=== PATIENT | female | born 1975 | race Caucasian/White ===

== ENCOUNTER 2020-10-25 14:45 | Emergency (ER) | payer BC, OTHER ==
--- NOTE | 2020-10-25 16:39 | ED Physician Documentation ---
PD HPI LOWER EXT INJURY - Stated complaint Stated Complaint: INGROWN HAIR ON LEG - Chief complaint Chief Complaint: Wound - History obtained from History obtained from: Patient - History of Present Illness PD HPI LOW EXT INJURY LOCATION: Left - Additional information Additional information: 44-year-old woman had a groin cyst about a month ago and finished Keflex for same on October 09. Last night developed an exquisitely painful lesion on the left lateral calf. There was no specific trauma. No fevers or chills or other systemic symptoms. Review of Systems Constitutional: reports: Reviewed and negative Eyes: reports: Reviewed and negative Ears: reports: Reviewed and negative Nose: reports: Reviewed and negative Throat: reports: Reviewed and negative PD PAST MEDICAL HISTORY - Past Medical History Past Medical History: No - Past Surgical History Past Surgical History: No - Present Medications Home Medications: Ambulatory Orders Medication Instructions Recorded Confirmed cephALEXin [Keflex] 500 mg PO Q6H #28 cap 10/25/20 - Allergies Allergies/Adverse Reactions: Allergies Allergy/AdvReac Type Severity Reaction Status Date / Time No Known Drug Allergies Allergy Verified 10/25/20 15:04 - Social History Does the pt smoke?: No Smoking Status: Never smoker Does the pt drink ETOH?: Yes Does the pt have substance abuse?: No - Immunizations Immunizations are current?: Yes PD ED PE NORMAL - Vitals Vital signs reviewed: Yes - General General: Alert and oriented X 3, No acute distress - HEENT HEENT: PERRL, EOMI - Neck Neck: Supple, no meningeal sign, No bony TTP - Back Back: No CVA TTP, No spinal TTP - Derm Derm: Normal color, Warm and dry - Extremities Extremities: Other (There is a very small wound or popped vesicle measuring only about a millimeter around on the lateral left calf. There is no purulent drainage. There is several centimeters of exquisitely tender cellulitis surrounding that.) - Neuro Neuro: Alert and oriented X 3, Normal speech Results - Vitals Vitals: Vital Signs - 24 hr 10/25/20 10/25/20 15:02 18:29 Temperature 36.2 C L 36.6 C Heart Rate 68 66 Respiratory 16 16 Rate Blood Pressure 135/85 H 134/74 H O2 Saturation 100 100 Oxygen O2 Source Room air - Labs Labs: Microbiology 10/25/20 16:39 Wound Culture - Preliminary Leg - Left Laboratory Tests 10/25/20 10/25/20 10/25/20 16:44 16:44 16:44 WBC 11.2 H RBC 4.93 Hgb 14.4 Hct 43.5 MCV 88.2 MCH 29.2 MCHC 33.1 RDW 13.9 Plt Count 173 MPV 9.4 Neut # (Auto) 8.8 H Lymph # (Auto) 1.5 [place] # (Auto) 0.6 Eos # (Auto) 0.1 Baso # (Auto) 0.1 Absolute Nucleated RBC 0.00 Nucleated RBC % 0.0 ESR 1 Sodium 138 Potassium 3.9 Chloride 102 Carbon Dioxide 23 Anion Gap 13.0 BUN 9 Creatinine 0.9 Estimated GFR (MDRD) 68 L Glucose 87 Calcium 9.3 C-Reactive Protein < 1.0 PD MEDICAL DECISION MAKING - ED course ED course: 44-year-old woman presents with a small area of cellulitis to the left lateral calf. She appears well but complains of significant pain although declined pain medication. She was therefore slightly worrying to me for a potential necrotizing soft tissue infection and this was worked up with blood work and a CT. Blood work showed a white count that was minimally elevated but normal sed rate and CRP. CT showed cellulitis and potentially myositis or fasciitis. No gas. This was discussed by phone with our orthopedist, Dr. Marko Machuca who did not feel like urgent operative intervention was necessary, that said, he is not technically on-call. She was administered IV antibiotics here, 2 g of cefazolin and what we did is agree to have her return immediately for worrisome issues but otherwise in 18 hours for a scheduled recheck with me. Departure - Departure Disposition: 01 Home, Self Care Clinical Impression: Cellulitis Qualifiers: Site of cellulitis: extremity Site of cellulitis of extremity: lower extremity Laterality: left Qualified Code(s): L03.116 - Cellulitis of left lower limb Condition: Good Record reviewed to determine appropriate education?: Yes Instructions: Cellulitis Dc Prescriptions: cephALEXin [Keflex] 500 mg PO Q6H #28 cap Comments: Prescription sent electronically to [facility] in [place]. Return immediately if you develop fever, intolerable pain, or spreading redness. Otherwise return tomorrow at noon for recheck with me. Discharge Date/Time: 10/25/20 18:52
[2020-10-25 16:50] LABS: BASOPHILS # (AUTO) 0.1 10^3/uL (0.0-0.1); BASOPHILS % (AUTO) 0.5 %; EOSINOPHILS # (AUTO) 0.1 10^3/uL (0.0-0.7); EOSINOPHILS % (AUTO) 0.7 %; HCT - HEMATOCRIT 43.5 % (37.0-47.0); HGB - HEMOGLOBIN 14.4 g/dL (12.0-16.0); LYMPHOCYTES # (AUTO) 1.5 10^3/uL (1.5-3.5); LYMPHOCYTES % (AUTO) 13.8 %; MEAN CORPUSCULAR HEMOGLOBIN 29.2 pg (27.0-31.0); MEAN CORPUSCULAR HGB CONC 33.1 g/dL (32.0-36.0); MEAN CORPUSCULAR VOLUME 88.2 fL (81.0-99.0); MEAN PLATELET VOLUME 9.4 fL (7.9-10.8); MONOCYTES # (AUTO) 0.6 10^3/uL (0.0-1.0); MONOCYTES % (AUTO) 5.4 %; NEUTROPHILS # (AUTO) 8.8 10^3/uL (1.5-6.6); NEUTROPHILS % (AUTO) 79.2 %; PLT - PLATELET COUNT 173 10^3/uL (130-450); RED BLOOD COUNT 4.93 10^6/uL (4.20-5.40); RED CELL DISTRIBUTION WIDTH 13.9 % (12.0-15.0); WHITE BLOOD COUNT 11.2 x10^3/uL (4.8-10.8)
[2020-10-25] MEDS ORDERED: IOPAMIDOL-300 100 ML VIAL ONE (17:01)
[2020-10-25 17:06] LABS: BUN - BLOOD UREA NITROGEN 9 mg/dL (6-20); CALCIUM 9.3 mg/dL (8.5-10.3); CARBON DIOXIDE - CO2 23 mmol/L (21-32); CHLORIDE 102 mmol/L (101-111); CREATININE 0.9 mg/dL (0.4-1.0); GFR - MDRD 68 (>89); GLUCOSE 87 mg/dL (70-100); POTASSIUM 3.9 mmol/L (3.5-5.0); SODIUM 138 mmol/L (135-145)
[2020-10-25 17:12] LABS: CRP - C-REACTIVE PROTEIN < 1.0 mg/dL (0-1.0)
[2020-10-25] MEDS ORDERED: ceFAZolin 1 GM VIAL IVP STA (17:50)
[2020-10-25] MEDS ORDERED: IOPAMIDOL-300 100 ML VIAL IVP ONE (17:54)
--- NOTE | 2020-10-25 18:00 | CT Report ---
PROCEDURE: LOWER EXTREMITY W - LT INDICATIONS: LLE lateral calf pain, eval NSTI TECHNIQUE: CT images of the left lower extremity were obtained after IV contrast menstruation (from j ust below the level of the knee to just above the level of the ankle). COMPARISON: None. There is mild skin thickening along the lateral aspect of the lower leg, with particular edema in the subcutaneous fat. There is also some fluid layering just superficial and immediately subjacent to th e fascia in this region, for example a subfascial fluid collection measuring 3 mm in thickness on ser ies 11 image 577. There is no gas within the visualized soft tissues. No periosteal reaction or other suspicious bone f inding. Vascular structures opacify normally with contrast. IMPRESSION: Small volume of fluid deep and superficial to the fascia of the lateral and anterior compartments of the lower leg. Findings are consistent with myositis or fasciitis. There is no gas in the visualized subcutaneous soft tissues. Skin thickening overlying the lateral aspect of the leg with reticular edema indicative of cellulitis . Reviewed by: Indra Gordon MD on 10/25/2020 5:59 PM PDT Approved by: Indra Gordon MD on 10/25/2020 5:59 PM PDT Station ID: [id number]
[2020-10-25 18:31] VITALS: BP 134/74
== END 2020-10-25 18:52 | disposition home or self-care (01) ==
LOC: ED 14:45
DX: L03.116 Cellulitis of left lower limb (principal)
CPT/HCPCS: 36415; 73701; 80048; 85025; 85651; 86140; 87070; 87181; 87205; 96374; 99283; 99284; Q9967

== ENCOUNTER 2020-10-26 12:09 | Emergency (ER) | payer OTHER ==
[2020-10-26 12:22] VITALS: BP 118/79
--- NOTE | 2020-10-26 13:21 | ED Physician Documentation ---
PD HPI LOWER EXT INJURY - Stated complaint Stated Complaint: LT LEG INJ CHECK - Chief complaint Chief Complaint: Ext Problem - History obtained from History obtained from: Patient - Additional information Additional information: 44-year-old woman returns as requested for recheck of left leg cellulitis with some concern for NSTI. Seen yesterday, a culture was done which is now preliminarily positive for staph aureus, cultures are pending. No fevers in the interim. The redness spread a bit last night but then trunk again. Pain is a little worse today especially with walking. She has been compliant with antibiotics. Review of Systems Ten Systems: 10 systems reviewed and negative Constitutional: denies: Fever, Chills Cardiac: reports: Reviewed and negative Respiratory: reports: Reviewed and negative PD PAST MEDICAL HISTORY - Past Surgical History Past Surgical History: No - Present Medications Home Medications: Ambulatory Orders Medication Instructions Recorded Confirmed cephALEXin [Keflex] 500 mg PO Q6H #28 cap 10/25/20 Sulfamethox/Trimeth 800/160 1 tablet PO BID 7 Days #14 tablet 10/26/20 [Bactrim Ds] - Allergies Allergies/Adverse Reactions: Allergies Allergy/AdvReac Type Severity Reaction Status Date / Time No Known Drug Allergies Allergy Verified 10/26/20 12:17 - Social History Does the pt smoke?: No Smoking Status: Never smoker Does the pt drink ETOH?: Yes Does the pt have substance abuse?: No - Immunizations Immunizations are current?: Yes PD ED PE NORMAL - Vitals Vital signs reviewed: Yes - General General: Alert and oriented X 3, No acute distress - HEENT HEENT: PERRL, EOMI - Neck Neck: Supple, no meningeal sign, No bony TTP - Extremities Extremities: Other (The cellulitis is within the bounds of that martin yesterday on the left lateral calf. It is less firm than yesterday. She does have some pain with flexion and extension of the leg but no profound tenderness.) - Neuro Neuro: Alert and oriented X 3, Normal speech Results - Vitals Vitals: Vital Signs - 24 hr 10/26/20 12:17 Temperature 36.5 C Heart Rate 71 Respiratory 16 Rate Blood Pressure 118/79 O2 Saturation 97 Oxygen O2 Source Room air - Labs Labs: Laboratory Tests 10/26/20 10/26/20 10/26/20 13:20 13:20 13:20 WBC 10.1 RBC 4.87 Hgb 14.4 Hct 43.2 MCV 88.7 MCH 29.6 MCHC 33.3 RDW 13.8 Plt Count 172 MPV 9.5 Neut # (Auto) 7.4 H Lymph # (Auto) 1.8 [place] # (Auto) 0.7 Eos # (Auto) 0.2 Baso # (Auto) 0.1 Absolute Nucleated RBC 0.00 Nucleated RBC % 0.0 ESR 5 Sodium 138 Potassium 3.9 Chloride 103 Carbon Dioxide 25 Anion Gap 10.0 BUN 9 Creatinine 0.8 Estimated GFR (MDRD) 78 L Glucose 94 Calcium 9.0 C-Reactive Protein 1.5 H PD MEDICAL DECISION MAKING - ED course ED course: 44-year-old woman presents for scheduled recheck for left leg cellulitis with slight concern for NSTI. Labs are stable with white count downtrending and minimal elevation now and CRP but ESR still normal. She looks comfortable. There is no fluid collection on bedside ultrasound. Lab cultures from yesterday preliminarily positive for staph so will add Bactrim for potential MRSA coverage. Departure - Departure Disposition: 01 Home, Self Care Clinical Impression: Cellulitis Qualifiers: Site of cellulitis: extremity Site of cellulitis of extremity: lower extremity Laterality: left Qualified Code(s): L03.116 - Cellulitis of left lower limb Condition: Good Record reviewed to determine appropriate education?: Yes Instructions: Cellulitis Dc Prescriptions: Sulfamethox/Trimeth 800/160 [Bactrim Ds] 1 tablet PO BID 7 Days #14 tablet Comments: As discussed, your wound culture is preliminarily growing staph aureus. I am adding a second antibiotic for that. If changes necessary based on the culture we will call you in a day or 2. Return if worsening. Discharge Date/Time: 10/26/20 14:25
[2020-10-26 13:25] LABS: BASOPHILS # (AUTO) 0.1 10^3/uL (0.0-0.1); BASOPHILS % (AUTO) 0.5 %; EOSINOPHILS # (AUTO) 0.2 10^3/uL (0.0-0.7); EOSINOPHILS % (AUTO) 1.5 %; HCT - HEMATOCRIT 43.2 % (37.0-47.0); HGB - HEMOGLOBIN 14.4 g/dL (12.0-16.0); LYMPHOCYTES # (AUTO) 1.8 10^3/uL (1.5-3.5); LYMPHOCYTES % (AUTO) 17.9 %; MEAN CORPUSCULAR HEMOGLOBIN 29.6 pg (27.0-31.0); MEAN CORPUSCULAR HGB CONC 33.3 g/dL (32.0-36.0); MEAN CORPUSCULAR VOLUME 88.7 fL (81.0-99.0); MEAN PLATELET VOLUME 9.5 fL (7.9-10.8); MONOCYTES # (AUTO) 0.7 10^3/uL (0.0-1.0); MONOCYTES % (AUTO) 6.5 %; NEUTROPHILS # (AUTO) 7.4 10^3/uL (1.5-6.6); NEUTROPHILS % (AUTO) 73.4 %; PLT - PLATELET COUNT 172 10^3/uL (130-450); RED BLOOD COUNT 4.87 10^6/uL (4.20-5.40); RED CELL DISTRIBUTION WIDTH 13.8 % (12.0-15.0); WHITE BLOOD COUNT 10.1 x10^3/uL (4.8-10.8)
[2020-10-26 13:43] LABS: CREATININE 0.8 mg/dL (0.4-1.0); CRP - C-REACTIVE PROTEIN 1.5 mg/dL (0-1.0); POTASSIUM 3.9 mmol/L (3.5-5.0)
[2020-10-26] MEDS ORDERED: SULFAMETH/TRIMETH DS 800/160 MG TABLET PO STA (14:00)
== END 2020-10-26 14:25 | disposition home or self-care (01) ==
LOC: ED 12:09
DX: L03.116 Cellulitis of left lower limb (principal)
CPT/HCPCS: 36415; 80048; 85025; 85651; 86140; 99283; A9270

== ENCOUNTER 2020-10-27 11:13 | Emergency (ER) | payer OTHER ==
[2020-10-27] MEDS ORDERED: LIDOCAINE 2%-EPI 1:100000 20 ML MDV SUBQ STA (12:25)
--- NOTE | 2020-10-27 12:55 | ED Physician Documentation ---
PD HPI WOUND RECHECK - Stated complaint Stated Complaint: LT LEG PX - Chief complaint Chief Complaint: Wound - Histroy obtained from History obtained from: Patient - History of Present Illness Location: Left Lower Extremity Timing - onset: How many days ago (4) Pain level max: 5 Pain level now: 5 Associated symptoms: Redness, Swelling, Pain. No: Fever - Additional information Additional information: Patient is a 44-year-old female with left lower extremity redness, swelling and pain. Has been seen here for the past 2 days. She states the redness has decreased today, but there seems to be more swelling at the site where there was drainage. Worse with walking, better with rest. No fevers or chills. 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 HEENT: None Psych: None Musculoskeletal: None Derm: None - Past Surgical History Past Surgical History: No - Present Medications Home Medications: Ambulatory Orders Medication Instructions Recorded Confirmed cephALEXin [Keflex] 500 mg PO Q6H #28 cap 10/25/20 10/27/20 Sulfamethox/Trimeth 800/160 1 tablet PO BID 7 Days #14 tablet 10/26/20 10/27/20 [Bactrim Ds] - Allergies Allergies/Adverse Reactions: Allergies Allergy/AdvReac Type Severity Reaction Status Date / Time No Known Drug Allergies Allergy Verified 10/27/20 11:30 - Social History Does the pt smoke?: No Smoking Status: Never smoker Does the pt drink ETOH?: Yes ETOH Use: Beer Does the pt have substance abuse?: No - Immunizations Immunizations are current?: Yes PD ED PE NORMAL - Vitals Vital signs reviewed: Yes - General General: Alert and oriented X 3, No acute distress - HEENT HEENT: Moist mucous membranes - Derm Derm: Warm and dry - Extremities Extremities: Other (Small 2 x 2 centimeter abscess to the left lower calf. Minimal surrounding erythema. Calf is soft, no crepitus. No evidence of compartment syndrome. Neurovascularly intact.) - Neuro Neuro: Alert and oriented X 3 Results - Vitals Vitals: Vital Signs - 24 hr 10/27/20 10/27/20 11:28 13:08 Temperature 37 C Heart Rate 80 78 Respiratory 16 16 Rate Blood Pressure 124/77 128/85 H O2 Saturation 98 100 Oxygen O2 Source Room air Procedures - Abscess I&D (location) Left lower extremity Preparation: Chlorhexadine Incision: Incised with scalpel, Purulent drainage, Packed Other: Pt tolerated well, Dressing applied PD MEDICAL DECISION MAKING - ED course Complexity details: reviewed old records, reviewed results, considered differential, d/w patient ED course: Patient with a small abscess to the left lower extremity. Surrounding celluliti s seems to be responding well to antibiotics. Abscess was drained and packed. Wound culture has already been obtained at prior visit. No evidence of necrotizing soft tissue infection at this time. Patient counseled regarding signs and symptoms for which I believe and urgent re-evaluation would be necessary. Patient with good understanding of and agreement to plan and is comfortable going home at this time This document was made in part using voice recognition software. While efforts are made to proofread this document, sound alike and grammatical errors may occur. Departure - Departure Disposition: 01 Home, Self Care Clinical Impression: Abscess Cellulitis Qualifiers: Site of cellulitis: extremity Site of cellulitis of extremity: lower extremity Laterality: left Qualified Code(s): L03.116 - Cellulitis of left lower limb Condition: Good Instructions: ED Abscess IandD, ED Infec Skin Cellulitis Follow-Up: LINDA WRIGHT [Primary Care Provider] - Within 1 week Comments: Continue your current antibiotics at home. Return if you worsen. This should continue to improve over the next few days. Use non-occlusive dressings and change them daily. You can return in 2 days for packing removal. This will not need to be repacked. If the packing falls out on its own, that is okay, you can use warm water soaks 2-3 times a day to help this heal. Return sooner if you worsen. Your wound culture is positive for MRSA. Your antibiotics should cover this.
[2020-10-27 13:10] VITALS: BP 128/85
== END 2020-10-27 13:20 | disposition home or self-care (01) ==
LOC: ED 11:13
DX: L03.116 Cellulitis of left lower limb (principal)
CPT/HCPCS: 10061

== ENCOUNTER 2020-10-29 07:39 | Emergency (ER) | payer OTHER ==
[2020-10-29 07:52] VITALS: BP 136/69
--- NOTE | 2020-10-29 08:06 | ED Physician Documentation ---
PD HPI WOUND RECHECK - Stated complaint Stated Complaint: FOLLOW UP - Chief complaint Chief Complaint: General - Histroy obtained from History obtained from: Patient - History of Present Illness Location: Left Lower Extremity Associated symptoms: Redness, Swelling, Drainage Recently seen: Emergency Dept (She has been seen over the last 4 to 5 days for leg swelling and redness with evaluation for infection and then abscess. Last seen 2 days ago with I&D of a developed abscess. Here for packing removal. She states drainage has decreased a lot. 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 HEENT: None Psych: None Musculoskeletal: None Derm: None - Past Surgical History Past Surgical History: No - Present Medications Home Medications: Ambulatory Orders Medication Instructions Recorded Confirmed cephALEXin [Keflex] 500 mg PO Q6H #28 cap 10/25/20 10/27/20 Sulfamethox/Trimeth 800/160 1 tablet PO BID 7 Days #14 tablet 10/26/20 10/27/20 [Bactrim Ds] - Allergies Allergies/Adverse Reactions: Allergies Allergy/AdvReac Type Severity Reaction Status Date / Time No Known Drug Allergies Allergy Verified 10/29/20 07:50 - Social History Does the pt smoke?: No Smoking Status: Never smoker Does the pt drink ETOH?: Yes Does the pt have substance abuse?: No - Immunizations Immunizations are current?: Yes PD ED PE NORMAL - Vitals Vital signs reviewed: Yes - General General: Alert and oriented X 3, No acute distress, Well developed/nourished - Derm Derm: Normal color, Warm and dry - Extremities Extremities: Other (The lateral left mid lower leg with local redness about 3 to 4 cm diameter with the center having a small incision with packing. No purulenc e right now. No fluctuance.) - Neuro Neuro: Alert and oriented X 3, No motor deficit, No sensory deficit, Normal speech Results - Vitals Vitals: Vital Signs - 24 hr 10/29/20 07:42 Temperature 36.2 C L Heart Rate 74 Respiratory 15 Rate Blood Pressure 136/69 H O2 Saturation 99 Oxygen O2 Source Room air PD MEDICAL DECISION MAKING - ED course Complexity details: considered differential (Packing is removed without any problems. The base does not appear purulent. The wound is left open.), d/w patient Departure - Departure Disposition: 01 Home, Self Care Clinical Impression: Encounter for abscess packing removal Condition: Stable Record reviewed to determine appropriate education?: Yes Follow-Up: LINDA WRIGHT [Primary Care Provider] - Comments: You can do warm moist compresses or warm soaks for the area to help promote drainage out. Keep the area lightly dressed to absorb any further drainage. At this point it should continue healing with diminished redness and swelling to normal. The wound itself will heal from the inside out and we typically leave it open to allow further drainage now that the packing is removed. Return if increased redness, local swelling, general systemic symptoms otherwise I hope this continues to resolve well over the next several days. Finish out your antibiotics and recheck if the redness/etc has not fully resolved upon completion of the course.
== END 2020-10-29 08:52 | disposition home or self-care (01) ==
LOC: ED 07:39
DX: L02.416 Cutaneous abscess of left lower limb (principal); Z48.00 Encounter for change or removal of nonsurgical wound dressing
CPT/HCPCS: 99281; 99282